=== PATIENT | female | born 1935 | race Caucasian/White ===

== ENCOUNTER → 2016-12-19 | Outpatient (CLI) | payer OTHER ==
[~2016-12-19] MED LIST: ADULT LOW DOSE81 MG PO; ATORVASTATIN CA40 MG PO; CALCIUM 600 +1 EA11 PO; CALCIUM OYSTER500 MG PO; CARDIZEM CD240 MG PO; CELEXA20 MG PO; COLACE100 MG PO; CRESTOR20 MG PO; CYMBALTA60 MG PO; FISHOIL; MIRALAX17 GM PO; PREDNISONE 20 M20 MG PO; REFRESH TEARS15 ML OPHTHALMIC; TAB A VITE1 EACH PO; [UNRECOGNIZED DRUG - OTHER] PO
== END ==
LOC: CAT 13:47
DX: Z13.6 Encounter for screening for cardiovascular disorders (principal)

== ENCOUNTER 2017-11-05 11:59 | Inpatient (IN) | payer OTHER ==
[~2017-11-05] VITALS: Ht 170.2 cm; Wt 67.1 kg
--- NOTE | ~2017-11-05 | HC ---
[facility] [address] [address] [address] CONSULTATION Name: PAPITO BAILEY Room #: 451-P ADM IN M.R.#: [id number] Admission: 11/05/17 Attend Phys: Ciro Murphy MD Discharge: Date of : 33 Report #: [id number] THIS REPORT FOR: //name// CC: Jose Carlos Murphy DATE OF SERVICE: 11/08/2017 HISTORY OF PRESENT ILLNESS: This lady was admitted with some concerns that included dysphagia, depression, polyarthritis and dizziness. Specifically, the dizziness has been worked up in some detail and Neurology is also on the case. It has increased in the last few weeks. She has also had some palpitations recently. She acknowledges a little bit of depression, but actually feels her anxiety is worse. She has not felt hopeless, helpless or suicidal. PAST PSYCHIATRIC HISTORY: She does have a longstanding history of depression and anxiety. She is currently seeing Dr. Robert for individual counseling. She has seen psychiatrists on and off. She has been on Lexapro and citalopram somewhat recently. PAST MEDICAL HISTORY: Dizziness, upper respiratory infection, GI bleed, orthostasis. SOCIAL HISTORY: She lives alone. Her granddaughter, Samira, is her healthcare power of dining room host. No active substance abuse issues. Currently living at [facility], but I believe she may be moving to [facility]. CURRENT MEDICATIONS: Include ondansetron p.r.n., Protonix 40 daily, diltiazem 120 daily, multivitamin 1 daily, melatonin 10 mg at bedtime. COGNITIVE EXAMINATION: She is alert and oriented to person, place and time. It appears there are some short term memory deficits. MENTAL STATUS EXAMINATION: female, casually dressed, mildly depressed, full affect, slightly anxious. No suicidal ideation, no homicidal ideation, no hallucinations, no delusions. Insight and judgment fair. DIAGNOSES: Major depressive disorder, recurrent; anxiety disorder, not otherwise specified. RECOMMENDATIONS: I agree with Dr. Hines's recommendation for mirtazapine. I do not see that on the monitor, however, so I have ordered that now unless there is a reason why they have decided not to do this. Indeed, she has poor appetite too, so this would be a good choice. I had initially mentioned she could follow up with Kenneth Arnold in my office, but [facility] [address] [facility] [place] [address] CONSULTATION Name: PAPITO BAILEY Room #: 451-P [facility] IN .R.#: [id number] Admission: 11/05/17 Attend Phys: Ciro Murphy MD Discharge: Date of : 34 Report #: [id number] she is already established with Dr. Robert, so obviously she should continue with Dr. Robert and between Neurology, Dr. Hines, and Dr. Cordero, her primary care doctor. She may not actually need a psychiatrist too, but if she does need a psychotropic medication prescriber, she can see one of my associates in [facility], [address], [address]. It was a pleasure to meet with this delightful lady. By: 1833 1854 Richardson Covarrubias MD /nt
--- NOTE | ~2017-11-05 | 2DMMODE ---
[facility] [address] [place] [address] 2 D/M-MODE ECHOCARDIOGRAM Name: PAPITO BAILEY Room #: 451-P ADM IN M.R.#: [id number] Admission: 11/05/17 Attend Phys: Ciro Murphy MD Discharge: Date of : 34 Date of Service: 11/06/17 0902 Report #: [id number] THIS REPORT FOR: //name// APPROVED REPORT Study performed: 11/06/2017 08:11:29 EXAM: Comprehensive 2D, Doppler, and color-flow Echocardiogram Patient Location: Echo lab Room #: [facility] Status: routine BSA: 1.78 HR: 56 bpm BP: 99/69 mmHg Rhythm: NSR Other Information Study Quality: Good Indications Palpitations, dizziness. 2D Dimensions RVDd: 34.20 mm LVEF(%): 66.51 (>50%) IVSd: 11.47 (7-11mm) LVOT Diam: 19.82 (18-24mm) LVDd: 49.68 mm PWd: 9.45 (7-11mm) Ascending Ao: 37.48 (22-36mm) LVDs: 31.36 (25-40mm) Aortic Root: 32.20 mm Escalante's LVEF: 66.51 % Volumes Left Atrial Volume (Systole) Single Plane 4CH: 45.19 mL Single Plane 2CH: 52.07 mL LA ESV Index: 31.00 mL/m2 Aortic Valve AoV Peak Jorge A.: 1.39 m/s AO Peak Gr.: 7.69 mmHg LVOT Max P.85 mmHg LVOT Max V: 0.84 m/s ANKIT Vmax: 1.88 cm2 Mitral Valve E/A Ratio: 1.2 MV Decel. Time: 142.26 ms [facility] [place] [address] 2 D/M-MODE ECHOCARDIOGRAM Name: LEOPAPITO YAYO Room #: 451-[facility] IN M.R.#: [id number] Admission: 11/05/17 Attend Phys: Ciro Murphy MD Discharge: Date of : 34 Date of Service: 11/06/17 0902 Report #: [id number] MV E Max Jorge A.: 0.82 m/s MV A Jorge A.: 0.66 m/s MV PHT: 41.26 ms IVRT: 106.11 ms Pulmonary Valve PV Peak Jorge A.: 0.57 m/s PV Peak Gr.: 1.30 mmHg Pulmonary Vein P Vein S: 0.52 m/s P Vein A: 0.31 m/s P Vein D: 0.52 m/s P Vein A Dur.: 143.0 msec P Vein S/D Ratio: 1.00 Tricuspid Valve TR Peak Jorge A.: 2.89 m/s RAP Estimate: 5.00 mmHg TR Peak Gr.: 33.42 mmHg PA Pressure: 38.00 mmHg Left Ventricle The left ventricle is normal size. There is normal LV segmental wall motion. There is normal left ventricular wall thickness. Left ventricular systolic function is normal. LVEF is 55-60%. Grade II - pseudonormal filling dynamics. Right Ventricle The right ventricle is normal size. The right ventricular systolic function is normal. Atria Left atrium is at the upper limits of normal. The right atrium size is normal. Aortic Valve Aortic valve is mildly calcified. No aortic regurgitation is present. There is no aortic valvular stenosis. Mitral Valve The mitral valve is normal in structure. Mild to moderate mitral regurgitation. No evidence of mitral valve stenosis. Tricuspid Valve The tricuspid valve is normal in structure. Moderate tricuspid regurgitation. Mild to moderate pulmonary hypertension with an estimated PAP of 40mmHg. Pulmonic Valve [address] [address] 2 D/M-MODE ECHOCARDIOGRAM Name: PAPITO BAILEY Room #: 451-P ADM IN ..#: [id number] Admission: 11/05/17 Attend Phys: Ciro Murphy MD Discharge: Date of : 34 Date of Service: 11/06/17 0902 Report #: [id number] The pulmonary valve is normal in structure. Trace pulmonic regurgitation. Great Vessels The aortic root is normal in size. The ascending aorta is normal in size. IVC is normal in size and collapses >50% with inspiration. Pericardium There is no pericardial effusion. <Conclusion> Left ventricular systolic function is normal. There is normal LV segmental wall motion. LVEF is 55-60%. Moderate diastolic dysfunction Aortic valve is mildly calcified. No aortic regurgitation or stenosis The mitral valve is normal in structure. Mild to moderate mitral regurgitation. Moderate tricuspid regurgitation. Mild to moderate pulmonary hypertension with an estimated pulmonary artery pressure of 40mmHg. There is no pericardial effusion. <ELECTRONICALLY SIGNED> By: Jasiel Dove MD, FACC 11/06/17901 1 1 Jasiel Dove MD, FACC /INF
--- NOTE | ~2017-11-05 | EKG ---
[place] [address] [address] [place] [place] [address] ELECTROCARDIOGRAM REPORT Name: PAPITO BAILEY Room #: 451-P ADM IN M.R.#: [id number] Admission: 11/05/17 Attend Phys: Ciro Murphy MD Discharge: Date of : 34 Report #: [id number] THIS REPORT FOR: //name// [facility] ED Test Date: 2017-11-05 Test Time: 12:58:40 Pat Name: PAPITO BAILEY Department: Room: Gender: F Rock Breaker: MARSI : 1935 Requested By: Bryan Matos Order Number: [id number] MD: Jasiel Dove Measurements Intervals [place] Rate: 70 P: 69 DC: 144 QRS: 20 QRSD: 88 T: 65 QT: 361 QTc: 390 Interpretive Statements Sinus rhythm Borderline T wave abnormalities Compared to ECG 10/08/2005 12:24:29 Nonspecific change in the T wave abnormality Electronically Signed On 11-06-2017 8:36:10 CDT by Jasiel Dove [email or web address] <ELECTRONICALLY SIGNED> By: Jasiel Dove MD, [facility] 11/06/17 0836 1258 [id number] Jasiel Dove MD, [facility] /EPI
--- NOTE | ~2017-11-05 | HC ---
[facility] [place] [address] [place] [address] CONSULTATION Name: PAPITO BAILEY Room #: 451-P ADM IN M.R.#: [id number] Admission: 11/05/17 Attend Phys: Ciro Murphy MD Discharge: Date of : 34 Report #: [id number] THIS REPORT FOR: //name// CC: Jose Carlos Murphy REASON FOR CONSULTATION: SVT. HISTORY OF PRESENT ILLNESS: The patient is an 81-year-old female who presents to the hospital with increased fatigue, lightheadedness, and presyncopal symptoms. In the emergency room, she was noted on telemetry to have runs of SVT. She was admitted to the hospital for further evaluation and due to her difficulties with poor appetite, underwent an EGD, which showed some gastritis and some esophagitis. While she has been here, she has been in sinus rhythm with periods of heart rates in the 50s-60s, but also has periods of tachycardia with heart rates in the 130s-150s, this appears to be quite regular and suggestive of an supraventricular tachycardia. REVIEW OF SYSTEMS: GENERAL: No fevers or chills. HEENT: No blurred vision. CARDIOVASCULAR: As above. PULMONARY: No productive cough. GASTROINTESTINAL: No nausea or vomiting. GENITOURINARY: No dysuria. MUSCULOSKELETAL: No myalgias or arthralgias. ENDOCRINE: No heat or cold intolerance. NEUROLOGIC: No focal weakness, but frequent lightheaded spells. PAST MEDICAL HISTORY: 1. Guillain-Gleason. 2. Depression. 3. Polyarthropathy. 4. Laminectomy and fusion in 2005. 5. Irritable bowel syndrome. SOCIAL HISTORY: She does not smoke. She is currently living near the [place], but she will be moving to [facility] here in the next few weeks. She is here today with her friend who teaches . FAMILY HISTORY: Noncontributory. ALLERGIES: CODEINE and ERYTHROMYCIN. HOME MEDICATIONS: Include diltiazem, which she has been off for a couple of days, Lipitor, aspirin, donepezil for some dementia, Lexapro, fluticasone, oxybutynin, and Myrbetriq. [address] [address] CONSULTATION Name: PAPITO BAILEY Room #: 451-P [facility] IN ..#: [id number] Admission: 11/05/17 Attend Phys: Ciro Murphy MD Discharge: Date of : 34 Report #: [id number] PHYSICAL EXAMINATION: VITAL SIGNS: Temperature is 36.8, pulse is in the 50s-60s, respirations 18, blood pressure 142/69, and sats are 96%. GENERAL: She is in no acute distress. HEENT: Oropharynx is clear. NECK: Supple with no thyromegaly. HEART: Regular rate and rhythm. LUNGS: Clear. ABDOMEN: Soft, nontender. EXTREMITIES: No clubbing, cyanosis, or edema. Cranial nerves 2-12 are intact. LABORATORY DATA: White count 4.9, hemoglobin 11.9, platelets 239. Chemistries: Sodium 149, potassium 3.9, BUN 7, creatinine 0.6. ProBNP is 821. Troponin is negative times 1. A 12-lead EKG shows sinus rhythm. Her echocardiogram demonstrates an EF of 50-60% with [id number] mitral regurgitation and mild pulmonary hypertension. I visualized her chest x-ray and it appears to show no acute process. ASSESSMENT: 1. Supraventricular tachycardia. 2. Sinus bradycardia. 3. Possible sick sinus syndrome. 4. Presyncope symptoms. 5. Mitral regurgitation. 6. Pulmonary hypertension. 7. Depression. 8. Guillain-Gleason. PLAN: In summary, the patient is an 81-year-old presenting with palpitations and lightheadedness with evidence of frequent episodes of supraventricular tachycardia. I recommended that we reinitiate her diltiazem therapy to see if this helps with these episodes. If this does not work, we may need to consider antiarrhythmic drugs. If the patient develops significant bradycardia, we may also consider pacemaker implantation to allow us to initiate medications to suppress the arrhythmias. We may also consider an ablation strategy. I recommend that she stay in the hospital for the next day or two to ensure that her heart rhythm remained stable from both an SVT and a bradycardic standpoint. In the long-term, I have recommended the patient follow up with me in clinic as an outpatient to help optimize her rhythm issues. I thank you for allowing me to participate in her care. <ELECTRONICALLY SIGNED> By: Rick Griffith MD 11/09/17 1454 1419 01 Rick Griffith MD /nt
--- NOTE | ~2017-11-05 | PATH ---
[facility] [address] [address] PATHOLOGY RPT PROCEDURE Name: PAPITO YOUNG Room #: 451-P DIS IN M.R.#: [id number] Admission: 11/05/17 Date of : 34 Discharge: 11/10/17 Report #: [id number] Path Case #: [id number] [facility] Accession Number: [id number] . 01 Material submitted: . PART A: DUODENUM BIOPSY PART B: ANTRUM BIOPSY PART C: DISTAL ESOPHAGUS BIOPSY . 01 Clinical history: . Pre-OP DX: Anorexia Post-OP DX: Esophagitis, hiatal hernia, gastritis . 02 Diagnosis: A. Small bowel mucosa, duodenum rule out celiac, endoscopic biopsy: - No significant diagnostic abnormalities present. - Negative for villous blunting or increase in intraepithelial lymphocytes. . B. Gastric mucosa, antrum rule out H. pylori, endoscopic biopsy: - Moderate reactive gastropathy with mild chronic inflammation. - Negative for intestinal metaplasia or atrophy. - Negative for Helicobacter pylori (properly controlled immunohistochemical stain performed). . C. Gastric cardia-type mucosa, distal esophagus rule out Flood's, endoscopic biopsy: - Mild chronic inflammation. - Negative for intestinal metaplasia (Flood's metaplasia) or dysplasia. (IUV:raven; 11/10/2017) QMS/11/10/2017 . 02 Electronically signed: . Xochitl Connolly MD, Pathologist NPI- [id number] . 01 Gross description: . A. Received in formalin labeled "Papito Young, duodenum BX, rule out celiac," are 2 segments of panda soft tissue measuring 0.6 x 0.2 x 0.2 cm in aggregate dimensions and measuring 0.3 cm each in maximum dimension. The specimen is submitted entirely in cassette A1. . B. Received in formalin labeled "Papito Young, antrum BX, rule out H. pylori," are 2 segments of panda soft tissue measuring 0.7 x 0.2 x 0.2 cm in aggregate dimensions and ranging from 0.3 to 0.4 cm in maximum dimension. The specimen is submitted entirely in cassette B1. . [address] [address] PATHOLOGY RPT PROCEDURE Name: PAPITO YOUNG Room #: 451-P DIS IN M.R.#: [id number] Admission: 11/05/17 Date of : 34 Discharge: 11/10/17 Report #: [id number] Path Case #: [id number] C. Received in formalin labeled "Hannah, Papito, distal esophagus BX, rule out Flood's," are 2 segments of panda soft tissue measuring 0.6 x 0.2 x 0.2 cm in aggregate dimensions and measuring 0.3 cm each in maximum dimension. The specimen is submitted entirely in cassette C1. (TSD; 11/06/2017) TOB/TOB . 02 Microscopic: . . . 02 Pathologist provided ICD-10: K29.50, K31.9, K20.9 . 02 CPT . 671886, 256161, 014382, [id number] Performed at: [address], [place], [place] [id number] MD Mohit Bowen MD Phone: [phone] Performed at: [address] [id number] MD Xochitl Connolly MD Phone: [phone]
[2017-11-05 12:05] VITALS: BP 115/64
[2017-11-05] MEDS ORDERED: ASPIR 8181 MG PO (12:20)
[2017-11-05] MEDS ORDERED: ARICEPT 5 MG TAB5 MG PO (12:22)
[2017-11-05 12:23] LABS: ABSOLUTE NEUTROPHILS 6.2 thou/uL (1.4-8.2); BASOPHILS 0.8 % (0.0-2.0); EOSINOPHILS 0.3 % (0.0-3.0); HEMATOCRIT 45.3 % (37.0-47.0); HEMOGLOBIN 15.6 gm/dL (12.0-15.0); LYMPHOCYTES 16.2 % (24.0-44.0); MCH 31.5 pg (26.0-34.0); MCHC 34.4 g/dL (28.0-37.0); MCV 91.7 fL (80.0-100.0); MONOCYTES 8.1 % (1.0-8.0); PLATELET COUNT 313 thou/uL (150-400); POLYS 74.6 % (36.0-66.0); RBC 4.94 mil/uL (4.20-5.00); RDW 13.8 % (10.5-14.5); WBC 8.4 thou/uL (4.0-11.0)
[2017-11-05] MEDS ORDERED: LEXAPRO5 MG PO (12:24)
[2017-11-05] MEDS ORDERED: ARNUITY ELLIPT50 MCG INH (12:25)
[2017-11-05] MEDS ORDERED: MYRBETRIQ25 MG PO (12:28)
[2017-11-05] MEDS ORDERED: OXYBUTYNIN ER 55 M1 PO (12:29)
[2017-11-05 12:33] LABS: ANION GAP 7 mmol/L (7-16); BUN 10 mg/dL (7-18); CHLORIDE 102 mmol/L (98-107); CO2 28 mmol/L (21-32); CREATININE 0.6 mg/dL (0.6-1.0); GLUCOSE 108 mg/dL (74-106); POTASSIUM 4.1 mmol/L (3.5-5.1); SODIUM 137 mmol/L (136-145)
[2017-11-05 12:42] LABS: ALBUMIN 3.8 g/dL (3.4-5.0); MAGNESIUM 1.8 mg/dL (1.8-2.4); SGOT 17 U/L (15-37); SGPT 14 U/L (30-65); TOTAL BILIRUBIN 0.5 mg/dL (<0.1-1.0); TROPONIN-I <0.06 ng/mL (<0.06)
[2017-11-05 12:58] LABS: URINE BILIRUBIN NEGATIVE (Negative); URINE BLOOD TRACE (Negative); URINE CLARITY CLEAR; URINE COLOR YELLOW; URINE GLUCOSE-RANDOM* NEGATIVE (Negative); URINE KETONES NEGATIVE (Negative); URINE LEUKOCYTES-REFLEX TRACE (Negative); URINE NITRITE-REFLEX NEGATIVE (Negative); URINE PROTEIN (DIPSTICK) NEGATIVE (Negative); URINE SPECIFIC GRAVITY <= 1.005 (1.005-1.035); URINE UROBILINOGEN 0.2 E.U./dl (0.2-1.0)
[2017-11-05 14:37] VITALS: BP 108/64
[2017-11-05 15:19] VITALS: BP 106/40
[2017-11-05 15:20] VITALS: BP 106/40
[2017-11-05 15:40] VITALS: BP 117/69
[2017-11-05 19:33] VITALS: BP 104/59
[2017-11-06 05:01] VITALS: BP 99/69
[2017-11-06 06:06] LABS: HEMATOCRIT 34.9 % (37.0-47.0); MCH 31.5 pg (26.0-34.0); MCHC 34.1 g/dL (28.0-37.0); MCV 92.4 fL (80.0-100.0); RBC 3.78 mil/uL (4.20-5.00); RDW 13.8 % (10.5-14.5); WBC 4.9 thou/uL (4.0-11.0)
[2017-11-06 06:10] LABS: HEMOGLOBIN 11.9 gm/dL (12.0-15.0)
[2017-11-06 06:29] LABS: CALCIUM 8.2 mg/dL (8.5-10.1); CREATININE 0.6 mg/dL (0.6-1.0); POTASSIUM 3.9 mmol/L (3.5-5.1)
[2017-11-06 08:10] LABS: FOLIC ACID 30.2 ng/mL (8.6-58.9)
[2017-11-06 09:20] VITALS: BP 125/84
[2017-11-06 09:21] VITALS: BP 135/86
[2017-11-06 09:22] VITALS: BP 142/69
[2017-11-06 16:06] VITALS: BP 117/63
[2017-11-06 19:30] VITALS: BP 118/62
[2017-11-07] VITALS (8 sets, daily range): BP systolic 107–123; BP diastolic 52–72
[2017-11-07 04:25] LABS: ABSOLUTE NEUTROPHILS 2.8 thou/uL (1.4-8.2); ABSOLUTE RETIC COUNT 0.0339 10^6/uL; BASOPHILS 0.9 % (0.0-2.0); EOSINOPHILS 2.8 % (0.0-3.0); HEMATOCRIT 35.3 % (37.0-47.0); HEMOGLOBIN 11.8 gm/dL (12.0-15.0); LYMPHOCYTES 34.1 % (24.0-44.0); MCHC 33.6 g/dL (28.0-37.0); MCV 92.2 fL (80.0-100.0); MONOCYTES 8.4 % (1.0-8.0); OBSERVED RETIC COUNT 0.89 % (0.6-2.6); PLATELET COUNT 241 thou/uL (150-400); POLYS 53.8 % (36.0-66.0); RBC 3.82 mil/uL (4.20-5.00); RDW 13.8 % (10.5-14.5); WBC 5.1 thou/uL (4.0-11.0)
[2017-11-07 04:35] LABS: % SATURATION 14 % (20-39); IRON 32 ug/dL (50-170); TIBC 230 ug/dL (250-450)
[2017-11-07 04:37] LABS: CALCIUM 8.1 mg/dL (8.5-10.1); CREATININE 0.5 mg/dL (0.6-1.0); POTASSIUM 3.6 mmol/L (3.5-5.1)
[2017-11-08 05:12] VITALS: BP 123/69
[2017-11-08 05:13] VITALS: BP 120/77
[2017-11-08 05:14] VITALS: BP 131/81
[2017-11-08 05:30] LABS: ABSOLUTE NEUTROPHILS 2.7 thou/uL (1.4-8.2); BASOPHILS 1.4 % (0.0-2.0); EOSINOPHILS 3.8 % (0.0-3.0); HEMATOCRIT 34.5 % (37.0-47.0); LYMPHOCYTES 31.3 % (24.0-44.0); MCH 31.8 pg (26.0-34.0); MCHC 34.7 g/dL (28.0-37.0); MCV 91.7 fL (80.0-100.0); MONOCYTES 9.4 % (1.0-8.0); PLATELET COUNT 235 thou/uL (150-400); POLYS 54.1 % (36.0-66.0); RBC 3.77 mil/uL (4.20-5.00); RDW 13.8 % (10.5-14.5); WBC 5.1 thou/uL (4.0-11.0)
[2017-11-08 05:41] LABS: CALCIUM 8.3 mg/dL (8.5-10.1); CREATININE 0.5 mg/dL (0.6-1.0); POTASSIUM 3.6 mmol/L (3.5-5.1)
[2017-11-08 08:00] VITALS: BP 135/75
[2017-11-08 15:35] VITALS: BP 108/61
[2017-11-08 19:18] VITALS: BP 101/54
[2017-11-09 03:09] VITALS: BP 126/68
[2017-11-09 06:13] LABS: ABSOLUTE NEUTROPHILS 2.6 thou/uL (1.4-8.2); BASOPHILS 1.2 % (0.0-2.0); HEMATOCRIT 36.3 % (37.0-47.0); HEMOGLOBIN 12.6 gm/dL (12.0-15.0); LYMPHOCYTES 33.7 % (24.0-44.0); MCH 31.9 pg (26.0-34.0); MCHC 34.7 g/dL (28.0-37.0); MONOCYTES 9.6 % (1.0-8.0); PLATELET COUNT 238 thou/uL (150-400); POLYS 52.5 % (36.0-66.0); RBC 3.95 mil/uL (4.20-5.00); RDW 13.7 % (10.5-14.5); WBC 4.9 thou/uL (4.0-11.0)
[2017-11-09 06:20] LABS: CALCIUM 8.6 mg/dL (8.5-10.1); CREATININE 0.6 mg/dL (0.6-1.0); POTASSIUM 3.7 mmol/L (3.5-5.1)
[2017-11-09 08:00] VITALS: BP 132/74
[2017-11-09 15:50] VITALS: BP 111/70
[2017-11-09 19:25] VITALS: BP 108/56
[2017-11-10 02:58] VITALS: BP 124/69
[2017-11-10 08:45] VITALS: BP 124/65
[2017-11-10 10:25] VITALS: BP 124/65
[2017-11-10 12:47] VITALS: BP 124/65
== END 2017-11-10 13:23 | disposition home health service (06) | DRG 308 ==
LOC: ER 11:59 → 4W 14:30 → EROBS 14:30 → 4W 15:18 → ENTRNSPT 11-10 13:18 → EDTRNSPTSTS 11-10 13:20 → 4W 11-10 13:23
PROVIDERS: Emergency Medicine; Hospitalist; Nurse Practitioner Family
PROC: 0DB78ZX Excision of Stomach, Pylorus, Via Natural or Artificial Opening Endoscopic, Diagnostic (ICD-10-PCS; principal; 2017-11-06)
PROC: 0DB38ZX Excision of Lower Esophagus, Via Natural or Artificial Opening Endoscopic, Diagnostic (ICD-10-PCS; principal; 2017-11-06)
PROC: 0DB98ZX Excision of Duodenum, Via Natural or Artificial Opening Endoscopic, Diagnostic (ICD-10-PCS; principal; 2017-11-06)
DX: I47.1 Supraventricular tachycardia (principal); E43 Unspecified severe protein-calorie malnutrition; G61.0 Guillain-Barre syndrome; F33.9 Major depressive disorder, recurrent, unspecified; N39.0 Urinary tract infection, site not specified; M13.0 Polyarthritis, unspecified; I95.1 Orthostatic hypotension; I34.0 Nonrheumatic mitral (valve) insufficiency; I27.20 Pulmonary hypertension, unspecified; Z60.2 Problems related to living alone; F41.9 Anxiety disorder, unspecified; E86.0 Dehydration; F03.90 Unspecified dementia, unspecified severity, without behavioral disturbance, psychotic disturbance, mood disturbance, and anxiety; K44.9 Diaphragmatic hernia without obstruction or gangrene; K29.70 Gastritis, unspecified, without bleeding; D64.9 Anemia, unspecified; K22.70 Barrett's esophagus without dysplasia; R13.10 Dysphagia, unspecified; N32.81 Overactive bladder; E78.00 Pure hypercholesterolemia, unspecified; K21.0 Gastro-esophageal reflux disease with esophagitis; K58.0 Irritable bowel syndrome with diarrhea; B95.5 Unspecified streptococcus as the cause of diseases classified elsewhere; R07.89 Other chest pain; Z79.899 Other long term (current) drug therapy; Z79.82 Long term (current) use of aspirin; Z88.6 Allergy status to analgesic agent; Z88.1 Allergy status to other antibiotic agents; Z98.1 Arthrodesis status; Z87.891 Personal history of nicotine dependence
CPT/HCPCS: 10045; 62110; 62900

== ENCOUNTER → 2018-02-09 | Outpatient (CLI) | payer OTHER ==
[~2018-02-09] MED LIST changes: +ARICEPT 5 MG TAB5 MG PO; +ARNUITY ELLIPT50 MCG INH; +ASPIR 8181 MG PO; +LEXAPRO5 MG PO; +MYRBETRIQ25 MG PO; +OXYBUTYNIN ER 55 M1 PO
== END ==
LOC: NUC 07:52
DX: I47.1 Supraventricular tachycardia (principal); R94.31 Abnormal electrocardiogram [ECG] [EKG]

== ENCOUNTER → 2018-08-25 | Outpatient (CLI) | payer OTHER | LOC: RAD 02:43 | DX: Z12.31 Encounter for screening mammogram for malignant neoplasm of breast (principal) ==

== ENCOUNTER → 2019-11-30 | Outpatient (CLI) | payer OTHER | LOC: SJCVC 14:00 | PROVIDERS: ATTEND Internal Medicine Cardiovascular Disease | DX: I48.91 Unspecified atrial fibrillation (principal); R94.31 Abnormal electrocardiogram [ECG] [EKG]; I47.1 Supraventricular tachycardia; E78.00 Pure hypercholesterolemia, unspecified; Z79.82 Long term (current) use of aspirin; Z79.899 Other long term (current) drug therapy ==

== ENCOUNTER → 2019-12-13 | Outpatient (CLI) | payer OTHER | LOC: BC 11-03 15:20 | PROVIDERS: ATTEND Family Medicine | DX: Z12.31 Encounter for screening mammogram for malignant neoplasm of breast (principal) ==

== ENCOUNTER → 2020-01-25 | Outpatient (CLI) | payer OTHER | LOC: SJCVCIMAG 08:46 | PROVIDERS: ATTEND Internal Medicine Cardiovascular Disease | DX: I08.3 Combined rheumatic disorders of mitral, aortic and tricuspid valves (principal); R94.31 Abnormal electrocardiogram [ECG] [EKG]; I48.91 Unspecified atrial fibrillation; I47.1 Supraventricular tachycardia; Z79.899 Other long term (current) drug therapy ==

== ENCOUNTER 2020-05-20 22:53 | Inpatient (IN) | payer OTHER ==
[~2020-05-20] VITALS: Ht 170.2 cm; Wt 74.1 kg
[2020-05-20 22:54] VITALS: BP 105/78
[2020-05-20 23:44] LABS: ABSOLUTE NEUTROPHILS 2.2 thou/uL (1.4-8.2); BASOPHILS 0.5 % (0.0-2.0); EOSINOPHILS 0.4 % (0.0-3.0); HEMATOCRIT 42.1 % (37.0-47.0); HEMOGLOBIN 13.7 gm/dL (12.0-15.0); LYMPHOCYTES 29.8 % (24.0-44.0); MCH 29.9 pg (26.0-34.0); MCHC 32.6 g/dL (28.0-37.0); MCV 91.6 fL (80.0-100.0); MONOCYTES 12.9 % (1.0-8.0); PLATELET COUNT 195 thou/uL (150-400); POLYS 56.4 % (36.0-66.0); RDW 14.4 % (10.5-14.5); WBC 3.9 thou/uL (4.0-11.0)
[2020-05-20 23:53] LABS: ANION GAP 7 mmol/L (7-16); BUN 11 mg/dL (7-18); CALCIUM 8.5 mg/dL (8.5-10.1); CHLORIDE 100 mmol/L (98-107); CO2 29 mmol/L (21-32); CREATININE 0.6 mg/dL (0.6-1.0); GLUCOSE 101 mg/dL (74-106); POTASSIUM 3.3 mmol/L (3.5-5.1); SODIUM 136 mmol/L (136-145)
[2020-05-21 00:03] LABS: ALBUMIN 3.7 g/dL (3.4-5.0); SGOT 29 U/L (15-37); SGPT 17 U/L (14-59); TOTAL BILIRUBIN 0.5 mg/dL (0.2-1.0); TROPONIN-I <0.06 ng/mL (<0.06)
[2020-05-21] MEDS ORDERED: ELIQUIS5 MG PO (00:50)
[2020-05-21 08:08] VITALS: BP 142/77
[2020-05-21 10:12] VITALS: BP 142/77
--- NOTE | 2020-05-21 10:35 | EKG ---
[address] [place] [address] ELECTROCARDIOGRAM REPORT Name: PAPITO BAILEY Room #: 170-1 ADM IN M.R.#: [id number] Admission: 05/21/20 Attend Phys: Juan Antonio Erickson MD Discharge: Date of : 34 Report #: [id number] [facility] ED Test Date: 2020-05-21 Test Time: 00:02:27 Pat Name: PAPITO BAILEY Department: Room: 170 Gender: F Shower Room Attendant: : 1935 Requested By: Cliff Huynh Order Number: [id number] MD: Emmanuel Toussaint Measurements Intervals [place] Rate: 73 P: NM: QRS: 60 QRSD: 94 T: 202 QT: 501 QTc: 553 Interpretive Statements Atrial fibrillation Nonspecific T abnormalities, diffuse leads Prolonged QT interval Compared to ECG 11/05/2017 12:58:40 Prolonged QT interval now present Sinus rhythm no longer present T-wave abnormality still present Electronically Signed On 05-21-2020 10:35:06 DYE WEIGHER by Emmanuel Toussaint [email or web address] <ELECTRONICALLY SIGNED> By: Emmanuel Toussaint MD, [facility] 05/21/20 1035 0002 0002 Emmanuel Toussaint MD, FAC /EPI
[2020-05-21 10:59] VITALS: BP 142/77
[2020-05-21 15:21] VITALS: BP 136/98
--- NOTE | 2020-05-21 18:11 | NUR ---
PT ADMITTED TO UNIT AT THIS TIME AND NOTED TO BE SLIGHTLY CONFUSED. HR WAS NOTED TO BE ABOVE 170. CARDIOLOGY CONSULTED AND NEW ORDERS FOR METOPROLOL NOTED. PATIEN HAS BEEN CLEARED BY PT UP AD MALIK. WILL CONT WITH PLAN OF CARE.
[2020-05-21 19:29] VITALS: BP 128/83
[2020-05-21 23:30] VITALS: BP 132/78
--- NOTE | 2020-05-21 23:34 | NUR ---
PT VERY CONFUSED AND FORGETFUL. REQUESTS SAME THINGS OVERAND OVER AND FORGETS SHE ALREADY PERFORMED TASK. SHE ASKS REPEATEDLY WHERE SHE IS AND WHY SHE IS HERE. INSTRUCTED PT ON FALL PRECAUTIONS. IV INFUSING LEFT ARM. ASSISTERD PT WITH BATH AND ADLS.
[2020-05-22 04:19] VITALS: BP 153/100
[2020-05-22 05:41] LABS: HEMATOCRIT 39.6 % (37.0-47.0); MCHC 32.9 g/dL (28.0-37.0); RBC 4.35 mil/uL (4.20-5.00); RDW 14.5 % (10.5-14.5)
[2020-05-22 06:00] LABS: CALCIUM 8.3 mg/dL (8.5-10.1); CREATININE 0.6 mg/dL (0.6-1.0); MAGNESIUM 1.9 mg/dL (1.8-2.4); POTASSIUM 3.6 mmol/L (3.5-5.1)
--- NOTE | 2020-05-22 06:00 | NUR ---
PT STILL CONFUSED BUTIS PLEASANT THIS AM. SHE SAYS SHE IS VERY HAPPY WIH THE TEAMWORK LAST NIGHT AT HER NEW HOME. BP MOD ELEVATED. WILL RECHECK. CAREPLAN INIIATED. BED DOWN .CALL LIGHT IN REACH. NO S/S DISTRESS PRESENTLY.
[2020-05-22 06:44] VITALS: BP 133/86
[2020-05-22 07:18] VITALS: BP 146/99
--- NOTE | 2020-05-22 14:26 | NUR ---
84-year-old female arrives via EMS to the ED with a chief complaint of generalized weakness. Patient reports she tested positive for COVID-19 two days prior to presentation. While in the ED found to be in A-fib, with hypokalemia. Seen by cardiology and recommended of Diltiazem and Eliquis. Patient last seen by CM on 11-10-17 and arrangements were made for [facility]. Per nursing patient remains pleasantly confused but is cooperating with care and has been cleared to be up Ad nba. ED assessment shows patient is oriented to person, place and situation. Patient remains on RA and sats continue to be above 95% on 05-22-20. Samira Lamb Granddaughter is listed as next of kin and libertarian of notification at [phone] per ED assessment, but is listed at [phone] on face sheet. However upon trying to reach anyone listed at these numbers was unsuccessful and per Bakari the nurse for the patient on 05-22-20 the actual number for the granddaughter is: [phone]. The granddaughter plans to move the patient to [facility] but currently living at [facility] in Independent Living. Upon discharge from this hospitalization the plan is to use [facility]. Introduced role of CM and will follow for discharge needs.
--- NOTE | 2020-05-22 15:14 | NUR ---
RESHMA faxed referral to [facility] for review. Spoke with Faith in intake at to notify of new referral. Discharge home with is anticipated for tomorrow per attending. ST tom ordered today. RESHMA is following to assist as needed with discharge planning.
[2020-05-22 16:02] VITALS: BP 111/79
--- NOTE | 2020-05-22 16:35 | NUR ---
RENE NOT DISCHARGED TODAY DUE TO CONCERN ABOUT HER COGNITION. SPEECH ASKED TO EVAL HER AND SHE DID NOT SCORE WELL. SHE HAS BEEN UP AND ABOUT IN ROOM. GAIT IS STEADY. WILL CONT WITH PLAN OF CAER.
[2020-05-22 19:36] VITALS: BP 118/73
[2020-05-23 03:47] VITALS: BP 125/83
--- NOTE | 2020-05-23 05:00 | NUR ---
PATIENT REMAINS A/O. CONFUSED AT TIMES. DENIES SOA, PAIN, NV. AFEBRILE. CONTROLLED AFIB OTHERWISE VSS. USE BATHROOM STANDBY ASSIST. DENIES NEEDS. WILL MONITOR
[2020-05-23 08:10] VITALS: BP 141/91
--- NOTE | 2020-05-23 13:50 | NUR ---
RESHMA reviewed chart and spoke with nursing and attending physician. Pt remains in Enhanced Isolation due to COVID. Pt is afebrile and not requiring O2. Pt is progressing towards goals for discharge. Pt's heart rate was elevated earlier. Cardiology notified. RESHMA left voice message for pt's granddtr, Nathalia, to discuss discharge plans: SNF v. Home with HH. RESHMA updated Faviola in intake at [facility]. [facility] can accept pt on service and states that the RN can see pt. Therapy will not be able to start seeing pt until 14 days after first positive COVID test. Awaiting input from pt's family at this time. RESHMA is following to assist as needed with discharge planning.
[2020-05-23 15:12] VITALS: BP 110/69
--- NOTE | 2020-05-23 18:57 | NUR ---
assumed patient care at 0700. a/o x4. up ad nba in room. afib on monitor. hr up when gets up. progressing towards poc goals.
[2020-05-23 19:16] VITALS: BP 102/68
[2020-05-24 04:04] VITALS: BP 133/94
--- NOTE | 2020-05-24 04:23 | NUR ---
RECIEVED CARE OF THIS PATIENT AT 1900. PATIENT ALERT AND ORIENTED AT TIME OF ASSESSMENT. BECAME CONFUSED THE NIGHT WORE ON. PATIENT UP AD MALIK. ON MS TELE AND RUNNING AFIB. SCHEDULED TO BE DISCHARGED TODAY. SLEPT MOST OF NIGHT. DENIES PAIN.
[2020-05-24 07:43] VITALS: BP 149/89
[2020-05-24 11:40] VITALS: BP 149/89
--- NOTE | 2020-05-24 11:55 | NUR ---
DISCHARGE NOTE: RESHMA reviewed chart and spoke with nursing and attending physician. Pt is medically stable for discharge today. RESHMA spoke with pt's granddtr, Samira, via phone to provide update and discuss discharge plan. Pt's family have discussed and would like pt to return to her [place] apt at [facility] with Nat . Pt's granddtr states family will be able to provide transportation home this afternoon. RESHMA updated attending physicain. Awaiting finalized discharge orders/summary at this time. Contact info for Nat PHILLIPS placed in pt's discharge summary. RESHMA updated [place] liaison of pt's discharge. RESHMA is following to finalize discharge plan.
[2020-05-24 15:39] VITALS: BP 104/64
[2020-05-24 19:15] VITALS: BP 149/89
[2020-05-24 20:35] VITALS: BP 113/63
[2020-05-25 03:42] VITALS: BP 128/83
--- NOTE | 2020-05-25 06:58 | NUR ---
PROGRESS PT A/O X3 FORGTFUL A TIMES. LUNGS CLEAR, BS POSITIVE VOIDING QS, UP AD MALIK DENIES PAIN. PLAN IS TO DC WITH FAMILY AND FAMILY TO TAKE TO NEW FACILITY.
[2020-05-25 07:53] VITALS: BP 141/86
[2020-05-25 08:11] VITALS: BP 141/86
--- NOTE | 2020-05-25 10:30 | NUR ---
DISCHARGE NOTE: RESHMA reviewed chart and spoke with nursing and attending physician. Pt is medically stable for discharge back to her [place] apt at [facility] with Nat PHILLIPS. RESHMA faxed finalized discharge orders/summary to Nat . Spoke with Faith in intake to confirm info was received. RESHMA received voice message from pt's granddtr, Samira, stating her car broke down and she is unable to come picking belt operator pt today. RESHMA also received voice message from pt's Goddaughter, Gricelda, stating she is in [place] and can come picking belt operator pt tomorrow. RESHMA notified Director of Case Mgmt, who will reach out to pt's family. RESHMA updated [place] liaison, who states they might be able to provide transportation later today. RESHMA is following to assist as needed with discharge planning.
== END 2020-05-25 14:01 | disposition home health service (06) | DRG 178 ==
LOC: ER 22:53 → EROBS 05-21 00:25 → 3W 05-21 00:25
PROVIDERS: Emergency Medicine; Nurse Practitioner Family; ADMIT Internal Medicine; ATTEND Internal Medicine
DX: U07.1 COVID-19 (principal); I47.1 Supraventricular tachycardia; F32.9 Major depressive disorder, single episode, unspecified; G62.9 Polyneuropathy, unspecified; E87.6 Hypokalemia; E78.5 Hyperlipidemia, unspecified; F03.90 Unspecified dementia, unspecified severity, without behavioral disturbance, psychotic disturbance, mood disturbance, and anxiety; M19.90 Unspecified osteoarthritis, unspecified site; I48.91 Unspecified atrial fibrillation; R13.10 Dysphagia, unspecified; Z88.6 Allergy status to analgesic agent; Z88.1 Allergy status to other antibiotic agents; Z79.82 Long term (current) use of aspirin; Z79.899 Other long term (current) drug therapy
CPT/HCPCS: 10879

== ENCOUNTER → 2020-06-26 | Outpatient (CLI) | payer OTHER ==
[~2020-06-26] MED LIST changes: +ELIQUIS5 MG PO
== END ==
LOC: SJCVC 13:30
PROVIDERS: ATTEND Internal Medicine Cardiovascular Disease
DX: R94.31 Abnormal electrocardiogram [ECG] [EKG] (principal); I48.91 Unspecified atrial fibrillation; I10 Essential (primary) hypertension; M19.90 Unspecified osteoarthritis, unspecified site; E78.00 Pure hypercholesterolemia, unspecified; F41.9 Anxiety disorder, unspecified; F32.9 Major depressive disorder, single episode, unspecified; Z79.82 Long term (current) use of aspirin; Z79.899 Other long term (current) drug therapy; Z86.16 Personal history of COVID-19; Z88.5 Allergy status to narcotic agent; Z88.1 Allergy status to other antibiotic agents; Z72.89 Other problems related to lifestyle